=== PATIENT | male | born 1940 | race Caucasian/White ===

== ENCOUNTER 2021-11-21 09:41 | Emergency (ER) | payer OTHER ==
[~2021-11-21] VITALS: Ht 165.1 cm; Wt 81.6 kg
[~2021-11-21 09:41] MED LIST: VASOTEC10 MG
[2021-11-21] MEDS ORDERED: LOSARTAN POTASS50 MG PO (09:48)
[2021-11-21] MEDS ORDERED: CIPRO500 MG PO (14:06)
== END 2021-11-21 14:09 | disposition home or self-care (01) ==
LOC: ER 09:41
DX: N39.0 Urinary tract infection, site not specified (principal); I10 Essential (primary) hypertension; K59.00 Constipation, unspecified